=== PATIENT | male | born 1980 | race Caucasian/White ===

== ENCOUNTER 2017-06-17 17:48 | Emergency (ER) | payer OTHER ==
[~2017-06-17] VITALS: Ht 172.7 cm; Wt 72.6 kg
[~2017-06-17 17:48] MED LIST: KEFLEX500 M1 PO
[2017-06-17] MEDS ORDERED: PRINIVIL20 MG PO (18:11)
[2017-06-17 19:13] LABS: INFLUENZA A ANTIGEN None Detected (None Detect); INFLUENZA B ANTIGEN None Detected (None Detect)
[2017-06-17] MEDS ORDERED: FLEXERIL PO (20:03)
[2017-06-17 20:10] VITALS: BP 126/70
== END 2017-06-17 20:11 | disposition home or self-care (01) ==
LOC: M.ERS 17:48
PROVIDERS: Physician Assistant
DX: J06.9 Acute upper respiratory infection, unspecified (principal); M54.5 Low back pain; I10 Essential (primary) hypertension; F17.210 Nicotine dependence, cigarettes, uncomplicated; Z88.0 Allergy status to penicillin; Z88.2 Allergy status to sulfonamides

== ENCOUNTER 2017-07-18 09:20 | Emergency (ER) | payer OTHER ==
[~2017-07-18] VITALS: Ht 172.7 cm; Wt 72.6 kg
[~2017-07-18 09:20] MED LIST changes: +FLEXERIL PO; +PRINIVIL20 MG PO
[2017-07-18] MEDS ORDERED: BUSPIRONE HCL10 MG PO (09:27)
[2017-07-18] MEDS ORDERED: FLEXERIL PO (09:27)
[2017-07-18 10:09] LABS: ABSOLUTE BASOPHILS 0.1 thou/uL (0.0-0.2); ABSOLUTE EOSINOPHILS 0.3 thou/uL (0.0-0.7); ABSOLUTE LYMPHOCYTES 1.7 thou/uL (0.8-5.3); ABSOLUTE MONOCYTES 0.5 thou/uL (0.0-1.2); ABSOLUTE NEUTROPHILS 12.1 thou/uL (1.6-8.1); BASOPHILS 0.9 %; EOSINOPHILS 2.1 %; HEMATOCRIT 49.9 % (42.0-52.0); HEMOGLOBIN 16.8 gm/dL (14.0-18.0); LYMPHOCYTES 11.3 %; MCHC 33.6 g/dL (28.0-37.0); MCV 89.2 fL (80.0-100.0); MONOCYTES 3.4 %; MPV 7.7 fl. (7.2-11.1); NUCLEATED RBCS 0 /100WBC; PLATELET COUNT* 319 thou/uL (150-400); POLYS 82.3 %; WBC 14.7 thou/uL (4.0-11.0)
[2017-07-18 10:15] LABS: CALCIUM 9.2 mg/dL (8.5-10.1); CREATININE 0.9 mg/dL (0.6-1.3); POTASSIUM 4.3 mmol/L (3.5-5.1)
[2017-07-18 10:20] LABS: ALBUMIN 3.8 g/dL (3.4-5.0); TOTAL BILIRUBIN 0.3 mg/dL (<0.1-1.0); TOTAL PROTEIN 7.3 g/dL (6.4-8.2)
[2017-07-18 10:55] LABS: URINE BILIRUBIN NEGATIVE (Negative); URINE BLOOD NEGATIVE (Negative); URINE CLARITY CLEAR; URINE COLOR YELLOW; URINE GLUCOSE-RANDOM NEGATIVE (Negative); URINE KETONES NEGATIVE (Negative); URINE LEUKOCYTES-REFLEX NEGATIVE (Negative); URINE NITRITE-REFLEX NEGATIVE (Negative); URINE PROTEIN NEGATIVE (Negative); URINE SPECIFIC GRAVITY <= 1.005 (1.005-1.030); URINE UROBILINOGEN 0.2 E.U./dl (0.2-1.0)
[2017-07-18] MEDS ORDERED: ZOFRAN ODT4 MG SUBLING (11:08)
[2017-07-18] MEDS ORDERED: CIPROFLOXACIN500 M1 PO (11:08)
[2017-07-18 11:15] VITALS: BP 133/79
== END 2017-07-18 11:17 | disposition home or self-care (01) ==
LOC: M.ERS 09:20
PROVIDERS: Family Medicine
DX: R10.13 Epigastric pain (principal); Z88.0 Allergy status to penicillin; Z88.2 Allergy status to sulfonamides; Z88.1 Allergy status to other antibiotic agents; I10 Essential (primary) hypertension; F10.99 Alcohol use, unspecified with unspecified alcohol-induced disorder

== ENCOUNTER 2017-09-14 21:55 | Emergency (ER) | payer OTHER ==
[~2017-09-14] VITALS: Ht 172.7 cm; Wt 74.8 kg
[~2017-09-14 21:55] MED LIST changes: +BUSPIRONE HCL10 MG PO; +CIPROFLOXACIN500 M1 PO; +ZOFRAN ODT4 MG SUBLING
[2017-09-14 23:36] VITALS: BP 129/72
== END 2017-09-14 23:37 | disposition home or self-care (01) ==
LOC: M.ERS 21:55
DX: S61.512A Laceration without foreign body of left wrist, initial encounter (principal); I10 Essential (primary) hypertension; Z88.0 Allergy status to penicillin; Z88.2 Allergy status to sulfonamides; W27.8XXA Contact with other nonpowered hand tool, initial encounter; Y93.89 Activity, other specified; Y92.89 Other specified places as the place of occurrence of the external cause; Y99.8 Other external cause status

== ENCOUNTER 2017-09-20 00:02 | Emergency (ER) | payer OTHER ==
[~2017-09-20] VITALS: Ht 172.7 cm; Wt 74.8 kg
[2017-09-20 00:06] VITALS: BP 159/82
[2017-09-20] MEDS ORDERED: KEFLEX500 M1 PO (00:15)
== END 2017-09-20 00:35 | disposition home or self-care (01) ==
LOC: M.ERS 00:02
DX: S51.812D Laceration without foreign body of left forearm, subsequent encounter (principal); I10 Essential (primary) hypertension; Z88.0 Allergy status to penicillin; Z88.1 Allergy status to other antibiotic agents; X58.XXXD Exposure to other specified factors, subsequent encounter

== ENCOUNTER 2017-10-05 13:10 | Emergency (ER) | payer OTHER ==
[~2017-10-05] VITALS: Ht 172.7 cm; Wt 73.9 kg
[2017-10-05 13:38] LABS: ABSOLUTE BASOPHILS 0.1 thou/uL (0.0-0.2); ABSOLUTE EOSINOPHILS 0.5 thou/uL (0.0-0.7); ABSOLUTE MONOCYTES 0.7 thou/uL (0.0-1.2); ABSOLUTE NEUTROPHILS 5.3 thou/uL (1.6-8.1); BASOPHILS 0.6 %; EOSINOPHILS 5.8 %; HEMATOCRIT 44.7 % (42.0-52.0); HEMOGLOBIN 15.2 gm/dL (14.0-18.0); LYMPHOCYTES 23.8 %; MCH 30.7 pg (26.0-34.0); MCV 90.3 fL (80.0-100.0); MONOCYTES 7.7 %; MPV 7.6 fl. (7.2-11.1); NUCLEATED RBCS 0 /100WBC; PLATELET COUNT* 240 thou/uL (150-400); POLYS 62.1 %; RBC 4.95 mil/uL (4.50-6.00); RDW-CV 14.3 % (10.5-14.5); WBC 8.5 thou/uL (4.0-11.0)
[2017-10-05 13:47] LABS: ANION GAP 10 mmol/L (7-16); APTT 25.7 Seconds (25.0-31.3); BUN 14 mg/dL (7-18); CALCIUM 8.5 mg/dL (8.5-10.1); CHLORIDE 104 mmol/L (98-107); CO2 24 mmol/L (21-32); GLUCOSE 120 mg/dL (70-99); INR 1.1; POTASSIUM 3.2 mmol/L (3.5-5.1); PROTIME 10.5 Seconds (9.20-11.50); SODIUM 138 mmol/L (136-145)
[2017-10-05 14:07] LABS: ALBUMIN 3.9 g/dL (3.4-5.0); ALKALINE PHOSPHATASE 65 U/L (46-116); CK-MB MASS 94.8 ng/mL (<0.5-3.6); LIPASE 71 U/L (73-393); MAGNESIUM 1.7 mg/dL (1.8-2.4); NT-PRO BRAIN NAT PEPTIDE 87 pg/mL (<300); SGOT 130 U/L (15-37); SGPT 108 U/L (30-65); TOTAL PROTEIN 7.2 g/dL (6.4-8.2); TROPONIN-I LEVEL <0.06 ng/mL (<0.06)
[2017-10-05 14:20] VITALS: BP 141/89
--- NOTE | 2017-10-06 10:11 | EKG ---
[place] [address] ELECTROCARDIOGRAM REPORT Name: MANOLO BORGES [id number] Admission: 10/05/17 Attend Phys: Discharge: 10/05/17 Date of : 78 Report #: [id number] THIS REPORT FOR: //name// [facility] ED Test Date: 2017-10-05 Test Time: 13:22:22 Pat Name: MANOLO BORGES Department: Room: Gender: M [employer]: : 1980 Requested By: Michael Varela Order Number: [id number] MD: Ferny Zhang Measurements Intervals [place] Rate: 77 P: 54 IN: 138 QRS: 61 QRSD: 90 T: 75 QT: 362 QTc: 410 Interpretive Statements Sinus rhythm Left ventricular hypertrophy No previous ECG available for comparison Electronically Signed On 10-06-2017 10:11:27 CDT by Ferny Zhang [email or web address] <ELECTRONICALLY SIGNED> By: Ferny Zhang MD, [facility] 10/06/17 1011 1322 1322 Ferny Zhang MD, FACC /EPI
== END 2017-10-05 14:25 | disposition home or self-care (01) ==
LOC: M.ERS 13:10
PROVIDERS: Family Medicine
DX: R07.9 Chest pain, unspecified (principal); I10 Essential (primary) hypertension

== ENCOUNTER 2020-12-19 19:37 | Emergency (ER) | payer OTHER, MEDICAID ==
[~2020-12-19] VITALS: Ht 170.2 cm; Wt 77.1 kg
[2020-12-19 19:48] VITALS: BP 139/95
[2020-12-19] MEDS ORDERED: IBUPROFEN 800800 M1 PO (21:13)
[2020-12-19] MEDS ORDERED: HYDROCODON-ACE1 EAC8 PO (21:17)
== END 2020-12-19 21:49 | disposition home or self-care (01) ==
LOC: M.ERS 19:37
DX: R22.31 Localized swelling, mass and lump, right upper limb (principal); M25.521 Pain in right elbow; I10 Essential (primary) hypertension; Z88.0 Allergy status to penicillin; Z88.2 Allergy status to sulfonamides; Z88.1 Allergy status to other antibiotic agents; Z98.890 Other specified postprocedural states